=== PATIENT | female | born 1945 | race Caucasian/White ===

== ENCOUNTER 2020-06-05 10:36 | Emergency (ER) | payer MEDICARE, SELFPAY ==
[2020-06-05 10:49] VITALS: BP 161/82; PULSE 94; RESP 16; TEMP 36.6; O2SAT 100; BMI 20.1
--- NOTE | 2020-06-05 11:13 | PC.NURSE ---
provider at bedside to close lac
--- NOTE | 2020-06-05 11:20 | ED_ITS ---
HPI - Wound/Laceration General Chief Complaint: Fall Stated Complaint: fell hit knee and chin Time Seen by Provider: 06/05/20 10:50 Source: patient Mode of arrival: ambulatory Limitations: no limitations History of Present Illness HPI narrative: 74-year-old female here status post mechanical fall. The patient tells me she tripped hitting her chin on the concrete. Denies loss of consciousness. She is here with a laceration to her chin. No headache, vision changes, vomiting or neck pain. She did land on her right knee and has some mild discomfort there. The patient tells me her tetanus is not up-to-date. She is not on any anticoagulation but does take an aspirin daily Onset (ago): minute(s) ( just prior to arrive) Location: face Place: other ( outside bank) Patient tetanus UTD: No Context: accidental Associated symptoms: none Related Data Allergies Allergy/AdvReac Type Severity Reaction Status Date / Time No Known Allergies Allergy Verified 06/05/20 10:57 Review of Systems Review of Systems: Yes all other systems are reviewed and are negative Constitutional: Constitutional: Reports no additional constitutional complaints, Denies body ache(s), Denies chills, Denies fever(s), Denies headache(s) and Denies weakness Eyes: Eyes: Reports no additional eye complaints and Denies change in vision ENT: Reports system reviewed and no additional complaints, except as documented, Denies dizziness, Denies headache(s), Denies nasal congestion, Denies nasal discharge and Denies neck pain Cardiovascular: Cardiovascular: Reports no additional cardiovascular complaints, Denies chest pain, Denies leg edema and Denies dyspnea Respiratory: Respiratory: Reports no additional respiratory complaints, Denies cough and Denies dyspnea Gastrointestinal: Gastrointestinal: Reports no additional gastrointestinal complaints, Denies abdominal pain, Denies diarrhea, Denies nausea and Denies vomiting Genitourinary: Genitourinary: Reports no additional female genitourinary complaints and Denies urinary incontinence Musculoskeletal: Musculoskeletal: Reports no additional musculoskeletal complaints, Denies back pain, Denies arthralgias, Denies joint swelling, Denies neck pain, Denies numbness and Denies tingling Integumentary/Breasts: Skin/Breast: Reports system reviewed and no additional complaints, except as docu and Denies rash Comments: skin lac Neurologic: Reports system reviewed and no additional complaints, except as documented, Denies Abnormal speech present, Denies dizziness, Denies headache(s), Denies numbness, Denies tingling and Denies weakness PMFSH Past Medical History Attestation statement: The following information was validated with the patient. Source: obtained from family and nursing notes reviewed Social History Social History Advance Directives: No Advance Directives Information Provided: Yes Physical Exam Vital Signs: Vital Signs: Last Vital Signs Temp 98 F 06/05/20 10:49 Pulse 94 06/05/20 10:49 Resp 16 06/05/20 10:49 BP 161/82 H 06/05/20 10:49 Pulse Ox 100 06/05/20 10:49 Body Mass Index 20.1 Const: General: cooperative, healthy appearing, comfortable and no acute distress Orientation/consciousness: patient oriented x3 Limitations: no limitations HENMT: Head: Yes normal to inspection Ears: hearing grossly normal bilaterally General nose exam: Normal external nose present Face and sinus: Yes normal facial exam Mouth: Normal oral and palatal mucosa present Throat: Yes posterior oropharynx normal Eyes: General: appearance normal, both eyes and all related structures Pupils: Equal, round and reactive pupils present Neck: Neck: Yes normal visual inspection Chest: Chest palpation & inspection: normal inspection of the chest Resp: Effort & Inspection: normal respiratory effort Auscultation: clear to auscultation bilaterally Cardio: Rate: regular rate Rhythm: regular rhythm Peripheral pulses: Peripheral pulses 2+ throughout GI: Inspection: Yes normal to inspection Palpation (GI): Soft to palpation and nontender Auscultation: normal bowel sounds Back/Spine/Pelvis: Thoracic/Lumbar Spine: thoracic and lumbar spine normal to inspection Skin: Other: patient has approximately 1 in laceration to her chin. Bleeding is controlled General skin exam: no rashes or lesions noted Neuro: General: patient oriented x3, Normal light touch and pain sensation, no focal motor deficits and normal sensation to monofilament Cranial nerves: Yes CN's II-XII intact bilaterally and Yes Equal, round and reactive pupils present Cognition (Neuro): normal cognition Speech: No Abnormal speech present Gait exam (Neuro): Normal gait present Motor exam (neuro): 5/5 motor strength present throughout Sensory Exam: Normal double simultaneous stimulation for sensation Coordination: [id number] test normal, [id number] test normal and tandem gait normal Extrem: Other: Mild bruising ecchymosis noted to the anterior right knee. Full range of motion. No bony abnormality. General: Yes normal to inspection Course Course Course Narrative: patient with laceration to the chin status post mechanical fall. No head injury or loss of consciousness. Patient is neurologically intact with no deficits. Stable vital signs. I offered a CT scan of her head and neck and the patient declined this. She is alert and oriented. We reviewed head injury care and when to return to the emergency department including severe headache, vision changes, vomiting. See wound repair note for laceration. The patient also has some mild bruising and swelling to her right knee. She has full range of motion with no palpable bony abnormality. She was offered an x- ray and she declines. Reviewed worrisome signs and symptoms when to return to the emergency department. Comfortable discharge home. Procedures Laceration Laceration 1: Site: face ( Chin) Size (cm): 2.5 Description: linear Depth: simple, single layer Local Anesthetic: lidocaine 2% Pre-repair: wound explored Skin layer closed with: nylon Size (cm): 6-0 Number of sutures: 5 Technique: simple, interrupted Discharge Plan Discharge Clinical Impression: Accident due to mechanical fall without injury, Laceration Contusion Qualifiers: Encounter type: initial encounter Contusion area: knee Laterality: right Qualified Code(s): S80.01XA - Contusion of right knee, initial encounter Patient Disposition: Home, Self-Care Instructions: Laceration (ED), Contusion in Adults (ED), Fall Prevention (ED) Additional Instructions: sutures out in 5-7 days. water may run over the sutures but do not let it soak in water Return for severe headache, vomiting or vision changes you were offered a CT scan today an x-ray of your knee which you declined Referrals: ED Physician,Generic [Physician] - 2 days Interventions: ED Discharge Assessment Last Done: 06/05/20 12:02 Discharge Date/Time: 06/05/20 12:03
[2020-06-05] MEDS: Lidocaine HCl 2 % MPF 5 ML VIAL SUBCUT (11:35)
== END 2020-06-05 12:03 | disposition home or self-care (01) ==
PROVIDERS: Emergency Provider Emergency Medicine
DX: S80.01XA Contusion of right knee, initial encounter (principal); S00.81XA Abrasion of other part of head, initial encounter; M25.562 Pain in left knee; M25.561 Pain in right knee; W17.89XA Other fall from one level to another, initial encounter; Y93.9 Activity, unspecified; Y92.9 Unspecified place or not applicable; Y99.9 Unspecified external cause status
CPT/HCPCS: 12011; 90471; 90715; 99283; 99284

== ENCOUNTER 2020-06-12 11:09 | Emergency (ER) | payer MEDICARE, SELFPAY ==
[2020-06-12 11:24] VITALS: BP 157/49; PULSE 77; RESP 16; TEMP 36.7; O2SAT 99; BMI 20.1
--- NOTE | 2020-06-12 12:06 | ED_ITS ---
HPI - Wound/Laceration General Chief Complaint: Wound/Laceration Stated Complaint: suture removal Time Seen by Provider: 06/12/20 12:06 History of Present Illness HPI narrative: Patient is here for suture removal of stitches in her chin that were placed a week ago, there is no complaint of fever or chills or swelling or pain Related Data Allergies Allergy/AdvReac Type Severity Reaction Status Date / Time No Known Allergies Allergy Verified 06/05/20 10:57 Review of Systems Review of Systems: There is no fever no chills no redness no swelling no discharge from the wound no headache no neck pain Yes all other systems are reviewed and are negative [facility] Past Medical History Attestation statement: The following information was validated with the patient. [facility] Narrative: Patient has no active middle school problems and no history of high blood pressure Source: nursing notes reviewed Medical History (Updated 06/13/20 @ 00:00 by Mulu Loo) Anemia DVT (deep venous thrombosis) Fibroid tumor Surgical History (Updated 06/12/20 @ 11:29 by Maria Luisa Her) H/O: hysterectomy Social History Social History Advance Directives: No Advance Directives Information Provided: Yes Physical Exam Vital Signs: Vital Signs: Last Vital Signs Temp 98.1 F 06/12/20 11:24 Pulse 77 06/12/20 11:24 Resp 16 06/12/20 11:24 BP 157/49 H 06/12/20 11:24 Pulse Ox 99 06/12/20 11:24 Body Mass Index 20.1 And O x3, comfortable, cooperative The facial exam there are [address] in the chin with some scab over the sutures, there is no surrounding redness warmth tenderness or swelling, there is no discharge from the wound Neck is supple Extremities full range of motion x4 Neuro no focal deficit Course Course Course Narrative: Suture so were removed with no problem from chin laceration there were 4 sutures Patient's finding of elevated blood pressure was discussed with patient who says it was checked recently and normal and will follow with primary doctor for further evaluation Discharge Plan Discharge Clinical Impression: Encounter for removal of sutures Patient Disposition: Home, Self-Care Additional Instructions: Scab over the wound will fall off in a day or 2, scar will improve over coming days Return any concerns Your blood pressure was elevated in the emergency room so follow with primary physician for further evaluation for possible high blood pressure Interventions: ED Discharge Assessment Last Done: 06/12/20 12:16 Discharge Date/Time: 06/12/20 12:10
== END 2020-06-12 12:10 | disposition home or self-care (01) ==
PROVIDERS: Emergency Provider Emergency Medicine
DX: Z48.02 Encounter for removal of sutures (principal)
CPT/HCPCS: 99283